=== PATIENT | male | born 1980 ===

== ENCOUNTER 2024-07-30 06:36 | Day surgery (SDC) | payer OTHER ==
[2024-07-24 14:00] VITALS: BP 129/85
[~2024-07-30] VITALS: Ht 177.8 cm; Wt 103.0 kg
[2024-07-30] MEDS ORDERED: CEFTRIAXONE SODIUM 2,000 MG VIAL ONE (08:33)
[2024-07-30] MEDS ORDERED: METRONIDAZOLE/SODIUM CHLORIDE 500 MG/100 ML PIGGYBACK IV ONE (08:34)
[2024-07-30] MEDS ORDERED: HEMOSTATIC MATRIX 1 KIT KIT TOP ONE (09:51)
[2024-07-30] MEDS ORDERED: POVIDONE-IODINE 118 ML BOTT TOP ONE (09:51)
[2024-07-30] MEDS ORDERED: LIDOCAINE HCL 1%/EPINEPHRINE 20ML VIAL IJ ONE (09:51)
[2024-07-30] MEDS ORDERED: DIBUCAINE 30 GM TUBE ONE (09:51)
[2024-07-30] MEDS ORDERED: BUPIVACAINE HCL/MPF 0.5% 30ML VIAL ONE (09:51)
[2024-07-30] MEDS ORDERED: PERCOCET 5-3251 EACH PO (11:35)
[2024-07-30] MEDS ORDERED: RECTICARE30 GM TOP (11:36)
[2024-07-30] MEDS ORDERED: MORPHINE SULFATE 4 MG/ML VIAL IV ONE ×2 (13:45→17:10)
[2024-07-30] MEDS ORDERED: TAMSULOSIN HCL 0.4 MG CAP PO ONE (17:45)
== END 2024-07-30 20:25 | disposition home or self-care (01) ==
LOC: CIR.AMB 06:36
PROVIDERS: ATTEND Surgery
DX: K64.2 Third degree hemorrhoids (principal); K64.4 Residual hemorrhoidal skin tags; K62.5 Hemorrhage of anus and rectum